=== PATIENT | male | born 1950 | race Caucasian/White ===

== ENCOUNTER 2017-04-30 08:19 | Emergency (ER) | payer OTHER ==
[~2017-04-30] VITALS: Ht 182.9 cm; Wt 145.2 kg
[~2017-04-30 08:19] MED LIST: ADULT LOW DOSE81 MG PO; ASPIRIN EC325 M1 PO; ASPIRIN325; AVAPRO300 MG PO; BAYER CHEWABLE81 MG PO; BENICAR20 MG PO; BUSPIRONE HCL10 MG PO; CARVEDILOL6.25 MG PO; CENTRUM SILVER1 EAC4 PO; CITRATE OF MAG296 ML PO; COQ-10100 MG PO; CRESTOR PO; DEPAKENE250 MG PO; EFFEXOR XR150 MG PO; FISH OIL 1,0001 EAC5 PO; FISH OIL 1,001000 M2 PO; HYDROCODON-ACE1 EAC7 PO; IBUPROFEN 800800 M1 PO; KEFLEX500 MG PO; LASIX 40 MG TAB40 M2 PO; LIPITOR80 MG; LIPITOR80 MG PO; MAGOX 400400 MG PO; MIRTAZAPINE15 M2 PO; NIASPAN 500 MG500 M1; NIASPAN 500 MG500 M1 PO; NORCO 5-325 TA1 EACH PO; PEPCID40 MG PO; PLAVIX 75 MG TA75 MG PO; REMERON15 MG PO; VALIUM5 MG PO; VICTOZA0.6 MG/0.1 SQ; ZETIA10 MG PO
[2017-04-30] MEDS ORDERED: CLONAZEPAM 0.50.5 M1 PO (09:28)
== END 2017-04-30 09:30 | disposition home or self-care (01) ==
LOC: ER 08:19
DX: F41.9 Anxiety disorder, unspecified (principal); F32.9 Major depressive disorder, single episode, unspecified; I10 Essential (primary) hypertension; E78.00 Pure hypercholesterolemia, unspecified; G47.30 Sleep apnea, unspecified

== ENCOUNTER 2018-06-17 11:58 | Emergency (ER) | payer OTHER ==
[~2018-06-17] VITALS: Ht 182.9 cm; Wt 142.9 kg
[~2018-06-17 11:58] MED LIST changes: +CLONAZEPAM 0.50.5 M1 PO
[2018-06-17] MEDS ORDERED: WELLBUTRIN XL300 MG PO (12:08)
[2018-06-17] MEDS ORDERED: MOBIC7.5 MG PO (13:49)
== END 2018-06-17 14:06 | disposition home or self-care (01) ==
LOC: ER 11:58
DX: M17.12 Unilateral primary osteoarthritis, left knee (principal); M25.462 Effusion, left knee; I10 Essential (primary) hypertension; E78.00 Pure hypercholesterolemia, unspecified; F32.9 Major depressive disorder, single episode, unspecified; G47.30 Sleep apnea, unspecified; I25.2 Old myocardial infarction; Z87.891 Personal history of nicotine dependence

== ENCOUNTER 2018-12-22 12:19 | Inpatient (IN) | payer OTHER ==
[~2018-12-22] VITALS: Ht 185.4 cm; Wt 158.8 kg
--- NOTE | ~2018-12-22 | HC ---
[facility] [place] [address] CONSULTATION Name: CHEPE HASSAN III Room #: [address] [place] [address]..#: [id number] Admission: 12/22/18 ������������������ Attend Phys: Blu Belcher MD Discharge: 12/23/18 ������������������ Date of : 54 Report #: [id number] THIS REPORT FOR: //name// CC: Blu Belcher DATE OF SERVICE: 12/23/2018 REASON FOR CONSULTATION: Hyponatremia. REASON FOR CONSULTATION: Not feeling well, nausea, dizziness. HISTORY OF PRESENT ILLNESS: A 68-year-old with past medical history of hypertension, coronary artery disease status post 3 stents placed back in 2008. He is not known to have any sodium issues. He presented yesterday reporting that he had some issues with nausea, stomach upset, associated with shortness of breath and sweating. He also reported some dizziness and lightheadedness. He did have episodes of diarrhea. He has a history of obstructive sleep apnea with no history of pulmonary hypertension. He has been seeing a dietitian at . They advised him to drink large quantities of water. He was found to have low sodium on presentation at 122. He had no other neurological symptoms. No seizure activities. No previous similar episodes. No previous sodium issues. PAST MEDICAL HISTORY: 1. Coronary artery disease. 2. Hypertension. 3. Obstructive sleep apnea. 4. Chronic lymphedema. 5. Obesity. 6. Status post total knee replacement. 7. Status post tonsillectomy. 8. Umbilical ventral hernia repair. SOCIAL HISTORY: He quit smoking a while ago. REVIEW OF SYSTEMS: GENERAL: As per the history of present illness. CARDIOVASCULAR: As per the history of present illness. PULMONARY: No cough or hemoptysis. GASTROINTESTINAL: As per the history of present illness. GENITOURINARY: No frequency, no urgency. NEUROLOGICAL: As per the history of present illness. MEDICATIONS: 1. Atorvastatin. 2. Carvedilol. 3. Aspirin. [facility] [address] [place] [address] CONSULTATION Name: CHEPE HASSAN III Room #: [address] [place] [address]#: [id number] Admission: 12/22/18 ������������������ Attend Phys: Blu Belcher MD Discharge: 12/23/18 ������������������ Date of : 54 Report #: [id number] 4. Irbesartan. FAMILY HISTORY: Significant for hypertension. PHYSICAL EXAMINATION: GENERAL: He is alert, oriented, in no apparent distress. VITAL SIGNS: Most recent blood pressure readings 128/78. He is afebrile with a temperature of 36.6. HEAD AND NECK: No jugular venous distention, no bruit, no thyromegaly. CHEST: No crackles. CARDIOVASCULAR: No rub. ABDOMEN: Soft, nontender with no hepatosplenomegaly. LOWER EXTREMITIES: Trace edema. LABORATORY DATA: Reviewed. Most recent labs showed the following: Sodium is actually up to 137. Creatinine is stable at 1.4. ASSESSMENT, IMPRESSION, PLAN: 1. Hyponatremia due to excessive fluid intake. 2. Coronary artery disease. 3. Ongoing nausea and vomiting. 4. Chronic kidney disease. 5. Hypertension. 6. Coronary artery disease. His sodium issues completely resolved. Continue with the fluid restriction. [place] salt intake. Coronary artery disease is being investigated by the cardiac team. GI issues are being investigated by the primary team. ��������������������������������������������� ���������������������������������������� By: ��������������������������������������������� 0932 0005 Arley Ramirez MD /nt
[~2018-12-22 12:19] MED LIST changes: -CARVEDILOL6.25 MG PO; +COREG6.25 MG PO; +MOBIC7.5 MG PO; +WELLBUTRIN XL300 MG PO
[2018-12-22 12:21] VITALS: BP 142/84
--- NOTE | 2018-12-22 12:26 | NUR ---
PT TAKEN TO ROOM ONE. TECHS MET PT IN ROOM WITH EKG MACHINE AND ARE PLACING PT ON THE MONITOR.
[2018-12-22 12:54] LABS: ABSOLUTE NEUTROPHILS 5.9 thou/uL (1.4-8.2); BASOPHILS 1.1 % (0.0-2.0); HEMATOCRIT 44.8 % (42.0-52.0); HEMOGLOBIN 15.5 gm/dL (14.0-18.0); LYMPHOCYTES 23.4 % (24.0-44.0); MCH 30.9 pg (26.0-34.0); MCHC 34.6 g/dL (28.0-37.0); MCV 89.5 fL (80.0-100.0); PLATELET COUNT 279 thou/uL (150-400); POLYS 63.5 % (36.0-66.0); RBC 5.01 mil/uL (4.50-6.00); RDW 13.5 % (10.5-14.5); WBC 9.3 thou/uL (4.0-11.0)
[2018-12-22 13:01] LABS: ANION GAP 0 mmol/L (7-16); BUN 22 mg/dL (7-18); CALCIUM 9.7 mg/dL (8.5-10.1); CHLORIDE 97 mmol/L (98-107); CO2 25 mmol/L (21-32); CREATININE 1.4 mg/dL (0.7-1.3); GLUCOSE 139 mg/dL (74-106); SODIUM 122 mmol/L (136-145)
[2018-12-22 13:11] LABS: SGOT 26 U/L (15-37); SGPT 38 U/L (30-65); TOTAL BILIRUBIN 0.5 mg/dL (<0.1-1.0); TOTAL PROTEIN 7.6 g/dL (6.4-8.2); TROPONIN-I <0.06 ng/mL (<0.06)
[2018-12-22] MEDS ORDERED: EFFEXOR 5050 MG/1 T1 PO (13:14)
[2018-12-22] MEDS ORDERED: MAGOX 400400 MG PO (13:17)
[2018-12-22 14:14] VITALS: BP 128/72
[2018-12-22 15:03] VITALS: BP 138/78
[2018-12-22 15:25] VITALS: BP 131/81
--- NOTE | 2018-12-22 16:46 | EKG ---
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 : 1950 Requested By: Coy Kemp Order Number: [id number] MD: Bar Morrison Measurements Intervals [place] Rate: 76 P: 40 [place]: 203 QRS: -36 QRSD: 105 T: 44 QT: 371 QTc: 418 Interpretive Statements Sinus rhythm Left axis deviation Poor R wave progression Compared to ECG 07/25/2014 10:01:15 Left-axis deviation now present Ventricular premature complex(es) no longer present Electronically Signed On 12-22-2018 16:45:53 CDT by Bar Morrison [email or web address] ��������������������������������������������� <ELECTRONICALLY SIGNED> ���������������������������������������� By: Bar Morrison MD, [facility] ��������������������������������������������� 12/22/18 1645 1227 1227 Bar Morrison MD, [facility] /EPI
[2018-12-22 19:48] VITALS: BP 120/81
[2018-12-23 00:10] VITALS: BP 136/65
--- NOTE | 2018-12-23 04:39 | NUR ---
PT ALERT AND ORIENTED. C/AKHIL NAUSEA WIHTOUT SWEATS. DENIES CHEST PAIN OR PRESSURE. ZOFRAN PRN UTILIZED . ANTICIPATES TO DC TODAY. MONITORING LABS. RADU. SODIUM. AD ARTIE WITH ACTIVITIES. TROPININS NEGATIVE X2. ON FLUID RESTRICTION 1500/ 24 HRS. WILL CONTINUE TO FOLLOW POC.
[2018-12-23 04:57] VITALS: BP 158/93
[2018-12-23 05:07] LABS: ALBUMIN 3.9 g/dL (3.4-5.0); CALCIUM 9.9 mg/dL (8.5-10.1); CREATININE 1.4 mg/dL (0.7-1.3); PHOSPHORUS 4.2 mg/dL (2.5-4.9); POTASSIUM 4.1 mmol/L (3.5-5.1)
[2018-12-23 07:30] VITALS: BP 128/78
[2018-12-23 11:30] VITALS: BP 114/78
[2018-12-23 11:38] VITALS: BP 128/78
--- NOTE | 2018-12-24 13:30 | EKG ---
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1950 Requested By: Rachel No Order Number: [id number] MD: Bar Morrison Measurements Intervals [place] Rate: 74 P: 55 [place]: 203 QRS: -38 QRSD: 101 T: 61 QT: 374 QTc: 415 Interpretive Statements Sinus rhythm Left axis deviation Abnormal R-wave progression, late transition Compared to ECG 12/22/2018 12:27:49 No significant change was found Electronically Signed On 12-24-2018 13:30:23 CDT by Bar Morrison [email or web address] ��������������������������������������������� <ELECTRONICALLY SIGNED> ���������������������������������������� By: Bar Morrison MD, [facility] ��������������������������������������������� 12/24/18 2089 0829 0829 Bar Morrison MD, [facility] /EPI
== END 2018-12-23 12:12 | disposition home or self-care (01) | DRG 641 ==
LOC: ER 12:19 → EROBS 13:55 → 2N 15:07
PROVIDERS: Emergency Medicine; Hospitalist; ADMIT Family Medicine
DX: E87.1 Hypo-osmolality and hyponatremia (principal); Z68.42 Body mass index [BMI] 45.0-49.9, adult; I10 Essential (primary) hypertension; E78.00 Pure hypercholesterolemia, unspecified; F32.9 Major depressive disorder, single episode, unspecified; G62.9 Polyneuropathy, unspecified; G47.33 Obstructive sleep apnea (adult) (pediatric); I25.10 Atherosclerotic heart disease of native coronary artery without angina pectoris; Z96.659 Presence of unspecified artificial knee joint; E66.01 Morbid (severe) obesity due to excess calories; Z79.82 Long term (current) use of aspirin; I25.2 Old myocardial infarction; Z95.5 Presence of coronary angioplasty implant and graft; Z82.49 Family history of ischemic heart disease and other diseases of the circulatory system; Z87.891 Personal history of nicotine dependence; Z79.899 Other long term (current) drug therapy
CPT/HCPCS: 10081

== ENCOUNTER → 2019-03-05 | Outpatient (CLI) | payer OTHER ==
[~2019-03-05] VITALS: Ht 185.4 cm; Wt 160.6 kg
[~2019-03-05] MED LIST changes: +EFFEXOR 5050 MG/1 T1 PO; +OMEGA-31000 M1 PO; +REXULTI0.5 MG PO; +VITAMIN D1000 UNI1 PO
[2019-03-05 07:18] LABS: HEMATOCRIT 45.3 % (42.0-52.0); HEMOGLOBIN 15.4 gm/dL (14.0-18.0); MCH 31.1 pg (26.0-34.0); MCHC 34.1 g/dL (28.0-37.0); MCV 91.1 fL (80.0-100.0); RBC 4.97 mil/uL (4.50-6.00); RDW 13.6 % (10.5-14.5); WBC 8.2 thou/uL (4.0-11.0)
[2019-03-05 07:22] VITALS: BP 126/76
[2019-03-05 07:27] LABS: CALCIUM 8.8 mg/dL (8.5-10.1); CREATININE 1.2 mg/dL (0.7-1.3); POTASSIUM 4.1 mmol/L (3.5-5.1)
[2019-03-05 07:54] LABS: CHOLESTEROL 192 mg/dL (<200); HDL CHOLESTEROL 51 mg/dL (>40); LDL CHOLESTEROL 125 mg/dL (<100); TC:HDL 3.8 Ratio (Not establshd); TRIGLYCERIDE 80 mg/dL (<150); VLDL 16 mg/dL (<40)
--- NOTE | 2019-03-05 08:18 | EKG ---
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 : 1950 Requested By: Agsuto Barriga Order Number: [id number] MD: True Hardy Measurements Intervals [place] Rate: 69 P: 56 [place]: 208 QRS: -37 QRSD: 118 T: 2 QT: 381 QTc: 408 Interpretive Statements Sinus rhythm Ventricular premature complex Nonspecific IVCD with LAD Low voltage, precordial leads Borderline T abnormalities, inferior leads Compared to ECG 12/23/2018 08:29:46 Electronically Signed On 03-05-2019 8:18:43 CDT by True Hardy [email or web address] ��������������������������������������������� <ELECTRONICALLY SIGNED> ���������������������������������������� By: True Hardy MD ��������������������������������������������� 03/05/19817 1 1 True Hardy MD /FANNY
--- NOTE | 2019-03-05 17:10 | CATHLAB ---
[facility] [place] [address] INVASIVE PROCEDURE REPORT Name: CHEPE HASSAN TANI ROSARIO Room #: REG [facility]#: [id number] ������������� Admission: 03/05/19 ������������� Attend Phys: Agusto Barriga MD Discharge: ��� ������������� ��� Date of : 54 Date of Service: 03/05/19 1710 �� Report #: [id number] �������� ��������������������������������������������[id number] THIS REPORT FOR: //name// APPROVED REPORT Study performed: 03/05/2019 11:37:24 Patient Details The patient is a 68 year-old male Event Personnel Agusto Barriga Casing Crew, Chalo Hall RN, Heber Michel RTR Taylor, Ramandeep Goodwin Monitor Procedures Performed Art Access - R radial artery Left Heart Cath w/or w/o Coronaries [id number] [facility] [address] Initial Mod Sed Same Phys/QHP Gr5y 745908 97048 Mod Sed Same Phys/QHP Ea 414995 Hemostasis with Hemoband Indication Dyspnea, Positive stress test Risk Factors Obesity, Hypercholesterolemia, Coronary Artery DiseaseHypertension Previous Procedures/Diagnoses Previous PCI, Previous IA Procedure Narrative The Right Wrist^ was infiltrated with 1% Lidocaine subcutaneous anesthesia. A TRANSRADIAL SLENDER 6F GLIDESHEATH KIT #[id number] sheath was inserted into the Right Radial Artery^. Coronary angiography was performed using coronary diagnostic catheters. The right coronary system was accessed and visualized with a jr4 catheter. The left coronary system was accessed and visualized with a jl4 catheter. The left ventricle was accessed and visualized with a angle pig catheter. Intraoperative Conscious Sedation Fentanyl 50 mcg Versed 1 mg Fluoro Time: 1464.00 minutes Dose: DAP 52118.10 cGycm2 1464 mGy [facility] [address] [place] [address] INVASIVE PROCEDURE REPORT Name: CHEPE HASSAN III Room #: REG [facility]#: [id number] ������������� Admission: 03/05/19 ������������� Attend Phys: Agusto Barriga MD Discharge: ��� ������������� ��� Date of : 54 Date of Service: 03/05/19 1710 �� Report #: [id number] �������� ��������������������������������������������[id number] Contrast Type and Amount: Omnipaque 100 ml Coronary Angiography The patient's coronary anatomy is right dominant. Diagnostic Cath Left Main This is a patent vessel, with no flow-limiting lesions. LAD There is a stent in the proximal/mid segment, with mild restenosis-30%. The apical LAD is a small-caliber vessel with a severe stenosis, unchanged from prior procedures. Diagonal 1 This is a small to moderate size caliber vessel with a severe occlusion in the mid segment, 70%. This is unchanged from prior procedures. Circumflex This is a moderate size caliber vessel, with a moderate stenosis in the mid segment, 50%. OM1 This is a patent vessel, with no flow-limiting lesions. OM2 This is a moderate size caliber vessel, patent with no flow-limiting lesions. Right Coronary There are patent stents in the proximal and mid segments, with mild restenosis of 30%. R PDA This is a small-caliber vessel with a severe stenosis in the mid segment, 70%. This is unchanged from prior procedures. RPLV This is a patent vessel, with no flow-limiting lesions. Left Ventriculography Left Ventriculography was not performed. Ejection Fraction was >55% based off patient's Nuclear Cardiac Stress Test. An LVEDP was measured and there is no gradient across the outflow tract. Hemodynamics The aortic pressure is 137/82 mmHg with a mean of 103 mmHg. The left ventricular pressure is 133/12 mmHg with a mean of mmHg. Conclusion 1. There are patent stents in the LAD and RCA with mild restenosis. 2. There are severe stenoses in small caliber vessels including the apical LAD, first diagonal artery and PDA. This is unchanged from prior procedures. [facility] [address] [place] [address] INVASIVE PROCEDURE REPORT Name: [facility]PE HASSAN [facility] Room #: REG [facility]#: [id number] ������������� Admission: 03/05/19 ������������� Attend Phys: Agusto Barriga MD Discharge: ��� ������������� ��� Date of : 54 Date of Service: 03/05/19 5500 �� Report #: [id number] �������� ��������������������������������������������[id number] 3. Moderate disease in the left circumflex artery. 4. Recommend aggressive risk factor management. ��������������������������������������������� <ELECTRONICALLY SIGNED> ���������������������������������������� By: Agusto Barriga MD ��������������������������������������������� 03/05/19 2770 09 09 Agusto Barriga MD /MARINA
== END | disposition home or self-care (01) ==
LOC: CATH 06:45
PROVIDERS: Internal Medicine Cardiovascular Disease
DX: I25.10 Atherosclerotic heart disease of native coronary artery without angina pectoris (principal); T82.855A Stenosis of coronary artery stent, initial encounter; I10 Essential (primary) hypertension; E78.00 Pure hypercholesterolemia, unspecified; E66.09 Other obesity due to excess calories; E78.5 Hyperlipidemia, unspecified; I25.2 Old myocardial infarction; G62.9 Polyneuropathy, unspecified; F41.9 Anxiety disorder, unspecified; F32.9 Major depressive disorder, single episode, unspecified; G47.30 Sleep apnea, unspecified; Z87.891 Personal history of nicotine dependence; Z79.899 Other long term (current) drug therapy; Z82.49 Family history of ischemic heart disease and other diseases of the circulatory system; Z98.890 Other specified postprocedural states; Z79.82 Long term (current) use of aspirin

== ENCOUNTER → 2019-10-19 | Outpatient (CLI) | payer OTHER | LOC: RAD 10:16 | DX: Z12.2 Encounter for screening for malignant neoplasm of respiratory organs (principal); I25.10 Atherosclerotic heart disease of native coronary artery without angina pectoris; M25.78 Osteophyte, vertebrae; Z87.891 Personal history of nicotine dependence ==

== ENCOUNTER → 2020-08-01 | Outpatient (CLI) | payer OTHER | LOC: SJCVC 13:55 | PROVIDERS: ATTEND Internal Medicine Cardiovascular Disease | DX: I44.0 Atrioventricular block, first degree (principal); I25.10 Atherosclerotic heart disease of native coronary artery without angina pectoris; E78.00 Pure hypercholesterolemia, unspecified; I10 Essential (primary) hypertension; R60.9 Edema, unspecified; R06.00 Dyspnea, unspecified; I25.2 Old myocardial infarction; Z79.82 Long term (current) use of aspirin; Z79.899 Other long term (current) drug therapy; Z87.891 Personal history of nicotine dependence ==

== ENCOUNTER → 2020-10-30 | Outpatient (CLI) | payer OTHER, MEDICARE | LOC: CAT 08:49 | PROVIDERS: ATTEND Internal Medicine Pulmonary Disease | DX: Z12.2 Encounter for screening for malignant neoplasm of respiratory organs (principal); I25.10 Atherosclerotic heart disease of native coronary artery without angina pectoris; M25.78 Osteophyte, vertebrae; J98.4 Other disorders of lung; Z87.891 Personal history of nicotine dependence ==